=== PATIENT | female | born 1955 | race Caucasian/White ===

== ENCOUNTER 2017-01-01 22:34 | Inpatient (IN) | payer BC, OTHER ==
[~2017-01-01] VITALS: Ht 167.6 cm; Wt 76.4 kg
[~2017-01-01 22:34] MED LIST: CHLO500T13 PO; CLOR3.755 PO; FIORTAB4 PO; MAXA10TA4 PO; META48.53 PO; MINO50CA PO; NIAC400C2 PO; NORT25CA PO; OXYC-360 PO; TUMS500C PO; ZOFR8TAB4 SL
[2017-01-01 22:45] VITALS: BP 182/112; PULSE 148; RESP 18; TEMP 99; O2SAT 99
[2017-01-01] MEDS ORDERED: SODIUM CHLOR 0.9% 1000 ML INJ 1,000 ML IV SCH (23:19)
[2017-01-01 23:21] VITALS: RESP 18; TEMP 99; O2SAT 99
[2017-01-01] MEDS ORDERED: BUTA1CAP PO (23:21)
[2017-01-01 23:24] VITALS: RESP 18; TEMP 99; O2SAT 99
[2017-01-01] MEDS ORDERED: SODIUM CHLORIDE 0.9% FLUSH 10 ML FLUSH IV FLUSH PRN (23:30)
[2017-01-01] MEDS ORDERED: ONDANSETRON HCL 4 MG/2 ML VIAL IVP ONE (23:30)
--- NOTE | 2017-01-01 23:31 | PD ---
HPI Chief Complaint: Abdominal Pain Time Seen by Provider: 23:11 Travel History International Travel<30 days: No Contact w/Intl Traveler<30days: No Traveled to known affect area: No History of Present Illness HPI The patient is a 61-year-old female that complains of generalized abdominal pain with low-grade fever and nausea without vomiting for 4 days. She has slight diarrhea today. She denies any blood in the stool. She denies any melanotic stools. She has already had an appendectomy and cholecystectomy. She has also had a hysterectomy. PFSH Past Medical History Blood Disorders: No Anxiety: Yes Heart Rhythm Problems: No Cancer: Yes (SQUAMEOUS DARINEL SKIN CANCER 2011) Cardiovascular Problems: No High Cholesterol: Yes Diabetes: No Diverticulitis: Yes Endocrine: No Genitourinary: No Headaches: Yes (MIGRAINES) Hepatitis: No Hiatal Hernia: No Immune Disorder: No Musculoskeletal: No Neurologic: No Psychiatric: Yes Reproductive: No Respiratory: No Migraines: Yes Thyroid Disease: No Menopausal: Yes Past Surgical History Abdominal Surgery: Yes (CHOLECYSTECTOMY, APPENDECTOMY) Cholecystectomy: Yes Social History Alcohol Use: No Tobacco Use: No Substance Use: No Allergies-Medications (Allergen,Severity, Reaction): Coded Allergies: Ciprofloxacin (Unverified Allergy, Severe, RASH, 01/01/17) Penicillin (Verified Allergy, Severe, 01/01/17) Sulfa (Verified Allergy, Severe, HIVES, 01/01/17) Erythromycin (Unverified Allergy, Unknown, UNKNOWN, 01/01/17) Reported Meds & Prescriptions Reported Meds & Active Scripts Active Reported Fioricet (Smnttmfmoy-Cpwackttpdpik-Ygmhzgri) 50-300-40 Mg Cap 1-2 Cap PO Q6H PRN Review of Systems Except as stated in HPI: all other systems reviewed are Neg Physical Exam Narrative GENERAL: The patient is alert, slightly obese, oriented 3 in slight apparent distress with her abdominal discomfort. The heart rate is 148 and blood pressure 182/112 but the rest the vital signs are normal. SKIN: Focused skin assessment warm/dry. No skin rashes noted. HEAD: Atraumatic. Normocephalic. EYES: Pupils equal and round. No scleral icterus. No injection or drainage. ENT: No nasal bleeding or discharge. Mucous membranes pink and moist. NECK: Trachea midline. No JVD. There is no meningismus present. CARDIOVASCULAR: Sinus tachycardia rhythm. No murmur appreciated. RESPIRATORY: No accessory muscle use. Clear to auscultation. Breath sounds equal bilaterally. GASTROINTESTINAL: Abdomen soft, with tenderness in the right lower quadrant to direct palpation, nondistended. Hepatic and splenic margins not palpable. No guarding or rebound is present. MUSCULOSKELETAL: No obvious deformities. No clubbing. No cyanosis. No edema. NEUROLOGICAL: Awake and alert. No obvious cranial nerve deficits. Motor grossly within normal limits. Normal speech. PSYCHIATRIC: Appropriate mood and affect; insight and judgment normal. Data Data Last Documented VS Vital Signs Date Time Temp Pulse Resp B/P Pulse Ox O2 Delivery O2 Flow Rate FiO2 01/02/17 00:50 109 18 189/100 99 Room Air 01/01/17 23:24 99.0 Orders Complete Blood Count With Diff (01/01/17 23:19) Comprehensive Metabolic Panel (01/01/17 23:19) Lipase (01/01/17 23:19) Urinalysis - C+S If Indicated (01/01/17 23:19) Ct Abd/Pel W Iv Contrast(Rout) (01/01/17 23:19) Iv Access Insert/Monitor (01/01/17 23:19) Ecg Monitoring (01/01/17 23:19) Oximetry (01/01/17 23:19) Ondansetron Inj (Zofran Inj) (01/01/17 23:30) Sodium Chlor 0.9% 1000 Ml Inj (Ns 1000 M (01/01/17 23:19) Sodium Chloride 0.9% Flush (Ns Flush) (01/01/17 23:30) Ketorolac Inj (Toradol Inj) (01/02/17 00:30) Iohexol 350 Inj (Omnipaque 350 Inj) (01/02/17 00:49) Labs Laboratory Tests Test 01/01/17 23:40 White Blood Count 13.4 TH/MM3 Red Blood Count 4.79 MIL/MM3 Hemoglobin 13.9 GM/DL Hematocrit 42.7 % Mean Corpuscular Volume 89.1 FL Mean Corpuscular Hemoglobin 29.1 PG Mean Corpuscular Hemoglobin 32.6 % Concent Red Cell Distribution Width 12.0 % Platelet Count 303 TH/MM3 Mean Platelet Volume 7.6 FL Neutrophils (%) (Auto) 80.5 % Lymphocytes (%) (Auto) 11.5 % Monocytes (%) (Auto) 7.3 % Eosinophils (%) (Auto) 0.4 % Basophils (%) (Auto) 0.3 % Neutrophils # (Auto) 10.8 TH/MM3 Lymphocytes # (Auto) 1.5 TH/MM3 Monocytes # (Auto) 1.0 TH/MM3 Eosinophils # (Auto) 0.1 TH/MM3 Basophils # (Auto) 0.0 TH/MM3 CBC Comment DIFF FINAL Differential Comment Urine Color STRAW Urine Turbidity CLEAR Urine pH 5.5 Urine Specific [place] 1.005 Urine Protein NEG mg/dL Urine Glucose (UA) NEG mg/dL Urine Ketones NEG mg/dL Urine Occult Blood TRACE Urine Nitrite NEG Urine Bilirubin NEG Urine Leukocyte Esterase NEG Urine RBC 0-2 /hpf Urine WBC 0-2 /hpf Urine Squamous Epithelial 0-5 /hpf Cells Urine Bacteria NONE /hpf Microscopic Urinalysis Comment CULT NOT INDICATED Sodium Level 140 MEQ/L Potassium Level 3.7 MEQ/L Chloride Level 105 MEQ/L Carbon Dioxide Level 24.5 MEQ/L Anion Gap 11 MEQ/L Blood Urea Nitrogen 10 MG/DL Creatinine 0.94 MG/DL Estimat Glomerular Filtration 61 ML/MIN Rate Random Glucose 141 MG/DL Calcium Level 9.3 MG/DL Total Bilirubin 0.4 MG/DL Aspartate Amino Transf 11 U/L (AST/SGOT) Alanine Aminotransferase 25 U/L (ALT/SGPT) Alkaline Phosphatase 76 U/L Total Protein 8.1 GM/DL Albumin 3.9 GM/DL Lipase 62 U/L MDM Medical Decision Making Medical Screen Exam Complete: Yes Emergency Medical Condition: Yes Medical Record Reviewed: Yes Interpretation(s) The urine shows trace blood but is otherwise normal and culture is not indicated. The CT abdomen/pelvis with IV contrast shows moderate to severe acute uncomplicated diverticulitis of the sigmoid colon. There is considerable wall thickening, presumably inflammatory. A small hiatal hernias incidentally noted. The complete metabolic profile shows a glucose of 141, GFR 61 but is otherwise normal. The lipase is normal. The CBC shows a white count of 13,400 with 81% neutrophils. Differential Diagnosis Gastroenteritis, colitis, diverticulitis on right side, pyelonephritis, cystitis , electrolyte disorder, dehydration Narrative Course The patient has acute diverticulitis without complication. The diverticulitis is moderate to severe as described by the radiologist and the patient has abdominal pain. She is a poor candidate for going home because of the intractable pain and the severity of the diverticulitis. She also has an elevated blood pressure which is not resolved by repeat blood pressures in the emergency department. Physician Communication Physician Communication I discussed the patient with Os[facility] who is covering for [facility], the patient will be admitted to Dr. Israel Wheeler. Diagnosis Primary Impression: Diverticulitis Additional Impression: Hypertension, poor control Admitting Information Admitting Physician Requests: Admit Wellington Haywood MD Jan 01, 2017 23:30
[2017-01-01 23:51] VITALS: BP 163/100; PULSE 114; RESP 18; O2SAT 97
[2017-01-01 23:55] LABS: BLOOD, URINE TRACE (NEG); GLUCOSE,URINE NEG (NEG); KETONE, URINE NEG (NEG); NITRITE,URINE NEG (NEG); PH, URINE 5.5 (5.0-8.5)
[2017-01-01 23:57] LABS: AUTOMATED NEUTROPHIL # 10.8 TH/MM3 (1.8-7.7); BASOPHIL % 0.3 % (0.0-2.0); EOSINOPHIL # 0.1 TH/MM3 (0-0.4); EOSINOPHIL % 0.4 % (0.0-4.0); HEMATOCRIT 42.7 % (35.0-46.0); HEMO FLAGS DIFF FINAL; LYMPH % 11.5 % (9.0-44.0); LYMPHOCYTE # 1.5 TH/MM3 (1.0-4.8); MEAN CELL VOLUME 89.1 FL (80.0-100.0); MEAN CORPUSCULAR HEMOGLOBIN 29.1 PG (27.0-34.0); MEAN CORPUSCULAR HGB CONC 32.6 % (32.0-36.0); MONO % 7.3 % (0.0-8.0); NEUT % 80.5 % (16.0-70.0); PLATELET COUNT 303 TH/MM3 (150-450); RED BLOOD COUNT 4.79 MIL/MM3 (4.00-5.30); WHITE BLOOD COUNT 13.4 TH/MM3 (4.0-11.0)
[2017-01-01 23:58] LABS: URINE COLOR STRAW (YELLW/STRAW)
[2017-01-01 23:59] LABS: COMMENT (UR) CULT NOT INDICATED; CULTURE IF INDICATED CULT NOT INDICATED; RBC, URINE 0-2 /hpf (0-3); SQUAMOUS EPITHELIAL CELL URINE 0-5 /hpf (0-5); WBC, URINE 0-2 /hpf (0-5)
[2017-01-02] VITALS (8 sets, daily range): BP systolic 137–189; BP diastolic 82–100; PULSE 95–126; RESP 15–18; TEMP 96.1–98.3; O2SAT 95–99
[2017-01-02 00:04] LABS: CHLORIDE 105 MEQ/L (98-107); POTASSIUM 3.7 MEQ/L (3.5-5.1); SODIUM (NA) 140 MEQ/L (136-145)
[2017-01-02 00:07] LABS: ANION GAP 11 MEQ/L (5-15); BICARBONATE 24.5 MEQ/L (21.0-32.0)
[2017-01-02 00:08] LABS: BLOOD UREA NITROGEN 10 MG/DL (7-18)
[2017-01-02 00:10] LABS: ALT (GPT) 25 U/L (10-53); AST (GOT) 11 U/L (15-37); GLOMERULAR FILTRATION RATE 61 ML/MIN (>89)
[2017-01-02 00:12] LABS: TOTAL BILIRUBIN ADULT 0.4 MG/DL (0.2-1.0)
[2017-01-02 00:13] LABS: ALKALINE PHOSPHATASE 76 U/L (45-117)
[2017-01-02] MEDS ORDERED: KETOROLAC TROMETHAMINE 60 MG/2 ML (IM) VIAL IVP ONE (00:30)
[2017-01-02] MEDS ORDERED: IOHEXOL 350 MG/ML 10 ML VIAL (for RAD DIAG) IV ONE (00:49)
--- NOTE | 2017-01-02 01:01 | RADHPO ---
EXAM DATE/TIME: 01/02/2017 00:29 [place] COMPARISON: No previous studies available for comparison. INDICATIONS : Diffuse abdominal pain with nausea for four days. IV CONTRAST: 96 cc Omnipaque 350 (iohexol) IV ORAL CONTRAST: No oral contrast ingested. RADIATION DOSE: 16.55 CTDIvol (mGy) MEDICAL HISTORY : Carcinoma, squamous cell. Diverticulitis. SURGICAL HISTORY : Appendectomy. Cholecystectomy.Hysterectomy. ENCOUNTER: Initial ACUITY: 4 - 6 days PAIN SCALE: 5/10 LOCATION: abdomen. TECHNIQUE: Volumetric scanning of the abdomen and pelvis was performed. Using automated exposure control and ad justment of the mA and/or kV according to patient size, radiation dose was kept as low as reasonably achievable to obtain optimal diagnostic quality images. FINDINGS: LOWER LUNGS: The visualized lower lungs are clear. LIVER: Homogeneous density without lesion. There is no dilation of the biliary tree. Previous cholecystecto my. SPLEEN: Normal size without lesion. PANCREAS: Within normal limits. KIDNEYS: Normal in size and shape. There is no mass, stone or hydronephrosis. ADRENAL GLANDS: Within normal limits. VASCULAR: There is no aortic aneurysm. BOWEL/MESENTERY: In the mid pelvic cavity is a focal area of wall thickening and moderate to severe inflammatory baxter es of the sigmoid colon, most likely on the basis of diverticulitis. No abscess, perforation or obstr uction. CT appearance of the small bowel within normal limits. Other than a small hiatal hernia, the stomach also appears normal. ABDOMINAL WALL: Within normal limits. RETROPERITONEUM: There is no lymphadenopathy. BLADDER: No wall thickening or mass. REPRODUCTIVE: Previous hysterectomy. I also don't clearly see the ovaries. INGUINAL: There is no lymphadenopathy or hernia. MUSCULOSKELETAL: No acute bony abnormality demonstrated. CONCLUSION: 1. Moderate to severe acute, uncomplicated diverticulitis of the sigmoid colon. There is considerable wall thickening, presumably inflammatory but colonoscopy is recommended after resolution of the acut e process and if not done recently. 2. No other acute abnormalities are demonstrated. Small hiatal hernia noted. Roe Walsh MD on January 02, 2017 at 0:55 Board Certified Radiologist. This report was verified electronically.
[2017-01-02] MEDS ORDERED: CLINDAMYCIN INJ 600 MG in SODIUM CHLORIDE 0.9% INJ 100 ML IV ONE (01:30)
[2017-01-02] MEDS ORDERED: metroNIDAZOLE 500 MG INJ 100 ML IV ONE (01:30)
[2017-01-02] MEDS ORDERED: SODIUM CHLORIDE 0.9% FLUSH 10 ML FLUSH IV FLUSH PRN (02:00)
[2017-01-02] MEDS ORDERED: NALOXONE HCL 0.4 MG/ML AMP IV PRN (02:00)
[2017-01-02] MEDS ORDERED: ONDANSETRON HCL 4 MG/2 ML VIAL IVP PRN (02:00)
[2017-01-02] MEDS: hydrALAZINE HCL 20 MG/ML VIAL IV PUSH PRN (02:19)
[2017-01-02] MEDS: MORPHINE SULFATE 4 MG/ML INJ IV PRN ×5 (03:32→22:01)
[2017-01-02] MEDS ORDERED: metroNIDAZOLE 500 MG INJ 100 ML IV SCH (08:00)
[2017-01-02] MEDS: PANTOPRAZOLE SOD 40 MG DELAYED RELEASE TAB PO SCH (08:22)
[2017-01-02] MEDS ORDERED: CLINDAMYCIN INJ 300 MG in SODIUM CHLORIDE 0.9% INJ 100 ML IV SCH (09:00)
--- NOTE | 2017-01-02 11:37 | MH ---
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 He had a slight diarrhea. She denies any blood in the stool. She denies any black stool. She denies any fever. She denies any chest pain, shortness of breath or any frequent or painful urination. Other than that, nothing significant. The abdominal pain was 2-3/10, diffuse with no radiation. No aggravating factors, relieved with pain medications. PAST MEDICAL HISTORY: As dictated above. PAST SURGICAL HISTORY: As dictated above. SOCIAL HISTORY: Denies smoking and drinking or taking any drugs. Lives at home. She is retired from the [employer]. ALLERGIES: 1. CIPROFLOXACIN. 2. PENICILLIN. 3. SULFA. 4. ERYTHROMYCIN. MEDICATIONS: Fioricet 50/300/40 one to two capsules p.o. q. 6 hours PRN headache. REVIEW OF SYSTEMS: Positive for mild abdominal pain. All other review of systems negative. PHYSICAL EXAMINATION: GENERAL: On physical exam, this is a 61-year-old female lying on the bed not in acute distress. VITAL SIGNS: Temperature 97.0, heart rate 113, respirations 18, blood pressure 154/82. 02 saturation 98% on room air. HEAD, EYES, EARS, NOSE, THROAT: Normocephalic and atraumatic. Extraocular muscles intact. Pupils equal, round and reactive to light and accommodation. Oral mucosa moist. NECK: The neck is supple. No visible thyromegaly or neck mass. Trachea is central. CARDIOVASCULAR: Regular rate and rhythm. RESPIRATORY: Clear to auscultation bilaterally. ABDOMEN: Abdomen soft and nontender. Bowel sounds audible. EXTREMITIES: No cyanosis or clubbing. Full range of motion of all extremities. NEUROLOGIC: Awake, alert and oriented times four. No focal deficits. SKIN: Warm and dry. PSYCHIATRIC: The patient is cooperative. Mood and affect are normal. LABS: CBC is totally unremarkable except for white blood cell count of 13.4 (high). Neutrophil percentage is high at 2.5. Basic metabolic profile totally unremarkable except for GFR 61 low, glucose random 141 high. Urine examination showed trace of occult blood. IMAGING STUDIES: CT abdomen and pelvis was done and shows moderate to severe acute uncomplicated diverticulitis of the sigmoid colon. There is considerable wall thickening and presumably inflammatory but colonoscopy is recommended after resolution of the acute process, and if not done recently. No acute abnormality demonstrated. Small hiatal hernia noted. No other acute abnormality demonstrated. ASSESSMENT AND PLAN: 1. This is a 61-year female who came to the emergency room and diagnosed with abdominal pain secondary to acute diverticulitis. The patient is on clindamycin 300 milligrams IV q. 6 hours, Flagyl 500 milligrams IV three times a day, the patient is on morphine 2 milligrams IV q. 4 hours PRN pain. 2. History of migraine headaches. Continue home medications. 3. History of anxiety. 4. 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 5. History of hyperlipidemia. The patient is not taking any cholesterol medicine. 6. DVT prophylaxis with SCDs. 7. GI prophylaxis with Protonix 40 milligrams p.o. daily. We are going to manage the patient on a daily basis and make recommendations on a daily basis. Israel Boss MD EA/LAXMI /7:13 AM /11:24 AM
[2017-01-03 00:20] VITALS: BP 155/95; PULSE 97; RESP 16; TEMP 98.7; O2SAT 98
[2017-01-03] MEDS: ACETAMINOPHEN 325 MG TAB PO PRN ×4 (00:52→22:25)
[2017-01-03] MEDS: MORPHINE SULFATE 4 MG/ML INJ IV PRN (06:18)
--- NOTE | 2017-01-03 07:25 | HHI.PR ---
Subjective History of Present Illness Patient c/o abdominal pain no fever/ chills Review of Systems GI/Abdomen GI/Abdominal Exam: Abdominal Pain Vitals/Results Intake & Output 01/02/17 01/02/17 01/03/17 15:00 23:00 07:00 Intake Total 0 ml Balance 0 ml Intake IV Total 0 ml # Voids 3 2 Vital Signs Vital Signs Date Time Temp Pulse Resp B/P Pulse Ox O2 Delivery O2 Flow Rate FiO2 01/03/17 04:21 01/03/17 00:20 98.7 97 16 155/95 98 01/02/17 20:45 98.3 95 18 157/98 95 01/02/17 17:57 16 01/02/17 17:49 97.4 99 15 158/97 99 01/02/17 13:20 96.1 98 16 152/91 99 01/02/17 08:42 96.1 104 15 137/85 98 CBC/BMP: 01/01/17 2340 01/01/17 2340 Physical Exam General General Appearance: Well Developed, Well Nourished, No Acute Distress, Comfortable Eyes Eye Exam: Pupils Equal, Pupils Reactive, Sclera White, Extraocular Movement Intact Throat Throat Exam: Oral Mucosa [place] & Moist, Oral Pharynx Normal Neck Neck Exam: Neck Supple, Trachea Midline Pulmonary Resp Exam: Clear Bilaterally, Breath Sounds Equal Cardiology CV Exam: Regular, Normal Sinus Rhythm Gastrointestinal/Abdomen GI Exam: Soft, Bowel Sounds Present GI Remarks diffuse abdominal tenderness. Musculoskeletal MS Exam: Normal Tone Integumentary Skin Exam: Clear, Warm, Dry, Intact Neurologic Neuro Exam: Alert, Awake, Oriented, Speech Clear, Moving All Extremities, No Focal Deficits Psychiatric Psych Exam: Appropriate Responses VTE Prophylaxis VTE Prophylaxis Device: SCDs PUD Prophylasis PUD Prophylaxis: Protonix Assessment/Plan Assessment/Plan ASSESSMENT AND PLAN: This is a 61-year female who came to the emergency room and diagnosed with 1. Abdominal pain secondary to acute diverticulitis. The patient was on clindamycin 300 milligrams IV q. 6 hours, Flagyl 500 milligrams IV three times a day, have swelling of face and ringing in ear so antibiotic discontinued...ID Consulted... the patient is on morphine 2 milligrams IV q. 4 hours PRN pain. 2. History of migraine headaches. Continue home medications. 3. History of anxiety. 4. 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 5. History of hyperlipidemia. The patient is not taking any cholesterol medicine. 6. DVT prophylaxis with SCDs. 7. GI prophylaxis with Protonix 40 milligrams p.o. daily. We are going to manage the patient on a daily basis and make recommendations on a daily basis. Discussed Condition with: Patient Israel Wheeler MD Jan 03, 2017 07:25
[2017-01-03 07:33] LABS: CHLORIDE 106 MEQ/L (98-107); POTASSIUM 3.9 MEQ/L (3.5-5.1); SODIUM (NA) 140 MEQ/L (136-145)
[2017-01-03 07:40] LABS: ANION GAP 10 MEQ/L (5-15); BICARBONATE 23.7 MEQ/L (21.0-32.0); BLOOD UREA NITROGEN 8 MG/DL (7-18); HEMATOCRIT 39.5 % (35.0-46.0); MEAN CELL VOLUME 90.2 FL (80.0-100.0); MEAN CORPUSCULAR HEMOGLOBIN 29.7 PG (27.0-34.0); PLATELET COUNT 254 TH/MM3 (150-450); RED BLOOD COUNT 4.38 MIL/MM3 (4.00-5.30); RED CELL DISTRIBUTION WIDTH 12.7 % (11.6-17.2); WHITE BLOOD COUNT 15.3 TH/MM3 (4.0-11.0)
[2017-01-03 07:42] LABS: ALT (GPT) 20 U/L (10-53); AST (GOT) 13 U/L (15-37); GLOMERULAR FILTRATION RATE 85 ML/MIN (>89)
[2017-01-03 07:43] LABS: TOTAL BILIRUBIN ADULT 0.5 MG/DL (0.2-1.0)
[2017-01-03 07:45] LABS: ALKALINE PHOSPHATASE 62 U/L (45-117)
[2017-01-03 08:11] LABS: HEMO FLAGS AUTO DIFF
[2017-01-03 08:15] LABS: BANDS 1 % (0-6); BASOPHILS 1 % (0-2); EOSINOPHILS 1 % (0-4); NEUTROPHIL # MANUAL DIFF 10.9 TH/MM3 (1.8-7.7); POLYS (SEG NEUTROPHILS) 70 % (16-70); WBC DIFF SAMPLE 100
[2017-01-03 08:16] LABS: PLATELET ESTIMATE SMEAR NORMAL (NORMAL); PLATELET MORPHOLOGY NORMAL (NORMAL); ROULEAUX PRESENT (NORMAL); SCAN/DIFF FINAL DIFF MANUAL
[2017-01-03] MEDS: metroNIDAZOLE 500 MG TAB PO SCH ×2 (08:42→14:00)
[2017-01-03] MEDS: PANTOPRAZOLE SOD 40 MG DELAYED RELEASE TAB PO SCH (08:42)
[2017-01-03] MEDS: CLINDAMYCIN 150 MG CAP PO SCH ×2 (08:42→12:15)
[2017-01-03 09:17] VITALS: BP 167/102; PULSE 83; RESP 15; TEMP 97.9; O2SAT 98
[2017-01-03] MEDS: ACETAMINOPHEN/HYDROcodone 325 MG/7.5 MG TAB PO PRN ×3 (09:24→20:35)
--- NOTE | 2017-01-03 10:35 | PD.CONS ---
HPI History of Present Illness This is a 61 year old female who presented to the emergency room with complaints of abdominal pain and nausea and fever for a few days prior to admission the patient admits to having had nuts the past several days and currently is feeling much better the pain has greatly improved and the nausea also has improved and she is able to tolerate clear liquid diet on admission through the ER a CAT scan of the abdomen was done and this shows acute diverticulitis this is her first episode of diverticulitis the patient reports having had a colonoscopy about 10 years ago and in general has been in good health up until this episode PFSH Past Medical History Migraine Skin cancer Anxiety Past Surgical History Cholecystectomy Appendectomy Hysterectomy Coded Allergies: Ciprofloxacin (Unverified Allergy, Severe, RASH, 01/01/17) Penicillin (Verified Allergy, Severe, 01/01/17) Sulfa (Verified Allergy, Severe, HIVES, 01/01/17) Erythromycin (Unverified Allergy, Unknown, UNKNOWN, 01/01/17) Medications Current Medications Ondansetron HCl 4 mg 4 mg ONCE ONCE IVP Last administered on 01/01/17 23:56; Start 01/01/17 at 23:30; Stop 01/01/17 at 23:31; Status DC Sodium Chloride (NS 1000 ml Inj) 1,000 ml @ 1,000 mls/hr Q1H IV Last administered on 01/01/17 23:56; Start 01/01/17 at 23:19; Stop 01/02/17 at 00:18 ; Status DC Sodium Chloride (NS Flush) 2 ml UNSCH PRN IV FLUSH FLUSH AFTER USING IV ACCESS ; Start 01/01/17 at 23:30 Ketorolac Tromethamine (Toradol Inj) 30 mg ONCE ONCE IVP Last administered on 01/02/17 00:47; Start 01/02/17 at 00:30; Stop 01/02/17 at 00:31; Status DC Iohexol 96 ml 96 ml STK-MED ONCE IV Last administered on 01/02/17 00:49; Start 01/02/17 at 00:49; Stop 01/02/17 at 00:50; Status DC Clindamycin Phosphate 600 mg/ Sodium Chloride 104 ml @ 208 mls/hr ONCE ONCE IV Last administered on 01/02/17 02:22; Start 01/02/17 at 01:30; Stop at 01:59; Status DC Metronidazole (Flagyl 500 Mg Inj) 100 ml @ 100 mls/hr ONCE ONCE IV Last administered on 01/02/17 01:48; Start 01/02/17 at 01:30; Stop 01/02/17 at 02:34 ; Status DC Sodium Chloride (NS Flush) 2 ml UNSCH PRN IV FLUSH FLUSH AFTER USING IV ACCESS ; Start 01/02/17 at 02:00 Acetaminophen (Tylenol) 650 mg Q4H PRN PO TEMP > 100.4 Last administered on 05:12; Start 01/02/17 at 02:00 Ondansetron HCl (Zofran Inj) 4 mg Q6H PRN IVP NAUSEA OR VOMITING; Start at 02:00 Naloxone HCl 0.4 mg 0.4 mg UNSCH PRN IV SEE LABEL COMMENTS; Start 01/02/17 at 02:00 Metronidazole 100 ml @ 100 mls/hr Q8H IV Last administered on 01/02/17 08:21 ; Start 01/02/17 at 08:00; Stop 01/02/17 at 15:43; Status DC Clindamycin Phosphate/Sodium Chloride (Cleocin Inj/NS Inj) 102 ml @ 104 mls/hr Q6H IV Last administered on 01/02/17 11:22; Start 01/02/17 at 09:00; Stop at 15:43; Status DC Hydralazine HCl (Apresoline Inj) 20 mg Q4H PRN IV PUSH SBP>160, DBP>90 Last administered on 01/02/17 02:19; Start 01/02/17 at 02:00 Morphine Sulfate (Morphine Inj) 2 mg Q4H PRN IV PAIN 7-10 Last administered on 01/03/17 06:18; Start 01/02/17 at 03:30; Stop 01/03/17 at 07:55; Status DC Pantoprazole Sodium (Protonix) 40 mg DAILY PO Last administered on 01/03/17 08 :42; Start 01/02/17 at 09:00 Acetaminophen/ Hydrocodone Bitart ([place] 7.5-325 Mg) 1 tab Q6H PRN PO PAIN SCALE 4 TO 10 Last administered on 4/30/17at 09:24; Start 01/03/17 at 08:00 Metronidazole (Flagyl) 500 mg Q8HR PO Last administered on 01/03/17 08:42; Start 01/03/17 at 08:00 Clindamycin HCl (Cleocin) 150 mg Q6HR PO Last administered on 01/03/17 08:42; Start 01/03/17 at 08:00 Family History Noncontributory Social History Denies any alcohol or tobacco Review of Systems ROS Review of systems Patient denies any headache dizziness blurry vision, denies any chest pain shortness of breath cough fever chills, Denies any palpitations or fatigue denies any polyuria dysuria hematuria, denies any numbness tingling or weakness, denies any skin rash pruritus or jaundice, denies any easy bruising or bleeding tendency, denies any recent change in mood GI Exam Vitals I&O Vital Signs Date Time Temp Pulse Resp B/P Pulse Ox O2 Delivery O2 Flow Rate FiO2 01/03/17 09:17 97.9 83 15 167/102 98 01/03/17 04:21 01/03/17 00:20 98.7 97 16 155/95 98 01/02/17 20:45 98.3 95 18 157/98 95 01/02/17 17:57 16 01/02/17 17:49 97.4 99 15 158/97 99 01/02/17 13:20 96.1 98 16 152/91 99 I/O 01/02/17 01/02/17 01/02/17 01/03/17 01/03/17 01/03/17 07:00 15:00 23:00 07:00 15:00 23:00 Intake Total 125 ml 0 ml Balance 125 ml 0 ml Intake IV Total 125 ml 0 ml # Voids 3 3 2 Imaging Last Impressions Abdomen/Pelvis CT 01/01/17 2712 Signed Impressions: Service Date/Time: Monday, January 02, 2017 00:29 - CONCLUSION: 1. Moderate to severe acute, uncomplicated diverticulitis of the sigmoid colon. There is considerable wall thickening, presumably inflammatory but colonoscopy is recommended after resolution of the acute process and if not done recently. 2. No other acute abnormalities are demonstrated. Small hiatal hernia noted. Roe Walsh MD Laboratory Test 01/03/17 07:04 White Blood Count 15.3 TH/MM3 Red Blood Count 4.38 MIL/MM3 Hemoglobin 13.0 GM/DL Hematocrit 39.5 % Mean Corpuscular Volume 90.2 FL Mean Corpuscular Hemoglobin 29.7 PG Mean Corpuscular Hemoglobin 33.0 % Concent Red Cell Distribution Width 12.7 % Platelet Count 254 TH/MM3 Mean Platelet Volume 8.3 FL Neutrophils (%) (Auto) % Lymphocytes (%) (Auto) % Monocytes (%) (Auto) % Eosinophils (%) (Auto) % Basophils (%) (Auto) % Neutrophils # (Auto) TH/MM3 Lymphocytes # (Auto) TH/MM3 Monocytes # (Auto) TH/MM3 Eosinophils # (Auto) TH/MM3 Basophils # (Auto) TH/MM3 CBC Comment AUTO DIFF Differential Total Cells 100 Counted Neutrophils % (Manual) 70 % Band Neutrophils % 1 % Lymphocytes % 21 % Monocytes % 6 % Eosinophils % 1 % Basophils % 1 % Neutrophils # (Manual) 10.9 TH/MM3 Differential Comment FINAL DIFF MANUAL Platelet Estimate NORMAL Platelet Morphology Comment NORMAL Basophilic Stippling FAINT [place] PRESENT Sodium Level 140 MEQ/L Potassium Level 3.9 MEQ/L Chloride Level 106 MEQ/L Carbon Dioxide Level 23.7 MEQ/L Anion Gap 10 MEQ/L Blood Urea Nitrogen 8 MG/DL Creatinine 0.70 MG/DL Estimat Glomerular Filtration 85 ML/MIN Rate Random Glucose 120 MG/DL Calcium Level 8.7 MG/DL Total Bilirubin 0.5 MG/DL Aspartate Amino Transf 13 U/L (AST/SGOT) Alanine Aminotransferase 20 U/L (ALT/SGPT) Alkaline Phosphatase 62 U/L Total Protein 7.4 GM/DL Albumin 3.4 GM/DL Physical Examination HEENT: Pupils round and reactive to light; normocephalic; atraumatic; no jaundice. Throat is clear. NECK: Neck is supple, no JVD, no lymphadenopathy. CHEST: Chest is clear to auscultation and percussion. CARDIAC: Regular rate and rhythm with no murmur gallop or rubs. ABDOMEN: Soft, nondistended, mild lower abdominal tenderness with no rebound or guarding; no hepatosplenomegaly; bowel sounds are present in all four quadrants. EXTREMITIES: No clubbing, cyanosis, or edema. SKIN: Normal; no rash; no jaundice. FRYLINE ATTENDANT: No focal deficits; alert and oriented times three. Assessment and Plan Plan Acute diverticulitis Agree with current supportive care Agree with current antibiotics Recommend finishing 10 days worth of antibiotics Patient follow up with GI post discharge Colonoscopy in 4-6 weeks We will advance her diet to a low residue diet If all is stable tomorrow patient may be discharged from a GI standpoint Jaya Butler MD Jan 03, 2017 10:35
[2017-01-03] MEDS: hydrALAZINE HCL 20 MG/ML VIAL IV PUSH PRN (12:35)
[2017-01-03 14:21] VITALS: BP 173/87; PULSE 106; RESP 16; TEMP 96.7; O2SAT 100
[2017-01-03] MEDS: DIAZEPAM 2 MG TAB PO PRN ×2 (15:57→22:25)
[2017-01-03 16:31] VITALS: BP 181/91
[2017-01-03] MEDS ORDERED: DIAZEPAM 2 MG TAB PO SCH (18:00)
[2017-01-03 18:21] VITALS: BP 160/90; PULSE 97; RESP 15; TEMP 98.6; O2SAT 100
[2017-01-04] VITALS (7 sets, daily range): BP systolic 120–180; BP diastolic 84–106; PULSE 90–107; RESP 18–20; TEMP 96.5–98.8; O2SAT 96–100
[2017-01-04] MEDS: ACETAMINOPHEN/HYDROcodone 325 MG/7.5 MG TAB PO PRN ×4 (02:34→21:08)
[2017-01-04] MEDS: ACETAMINOPHEN 325 MG TAB PO PRN ×2 (05:22→17:55)
[2017-01-04] MEDS: cloNIDine HCL 0.1 MG TAB PO PRN ×2 (05:22→21:14)
[2017-01-04 06:45] LABS: HEMATOCRIT 39.5 % (35.0-46.0); MEAN CELL VOLUME 89.3 FL (80.0-100.0); MEAN CORPUSCULAR HGB CONC 33.5 % (32.0-36.0); PLATELET COUNT 310 TH/MM3 (150-450); RED BLOOD COUNT 4.42 MIL/MM3 (4.00-5.30); RED CELL DISTRIBUTION WIDTH 12.1 % (11.6-17.2); REVIEW FLAG FINAL; WHITE BLOOD COUNT 8.2 TH/MM3 (4.0-11.0)
[2017-01-04] MEDS: PANTOPRAZOLE SOD 40 MG DELAYED RELEASE TAB PO SCH (09:15)
[2017-01-04] MEDS: DIAZEPAM 2 MG TAB PO PRN ×2 (09:53→17:55)
--- NOTE | 2017-01-04 10:05 | HHI.PR ---
Subjective History of Present Illness Patient abdominal pain better..no fever/ chills Review of Systems GI/Abdomen GI/Abdominal Exam: Abdominal Pain Vitals/Results Intake & Output 01/03/17 01/03/17 01/04/17 15:00 23:00 07:00 Intake Total 1200 ml 0 ml Balance 1200 ml 0 ml Intake Oral 1200 ml IV Total 0 ml # Voids 4 7 Vital Signs Vital Signs Date Time Temp Pulse Resp B/P Pulse Ox O2 Delivery O2 Flow Rate FiO2 01/04/17 04:59 97.8 105 18 180/106 100 01/04/17 00:53 97.8 97 18 120/92 96 01/03/17 18:21 98.6 97 15 160/90 100 01/03/17 16:31 181/91 01/03/17 15:27 18 01/03/17 14:21 96.7 106 16 173/87 100 CBC/BMP: 01/04/17 0625 01/03/17 0704 Lab Results Laboratory Tests Test 01/04/17 06:25 White Blood Count 8.2 TH/MM3 Red Blood Count 4.42 MIL/MM3 Hemoglobin 13.2 GM/DL Hematocrit 39.5 % Mean Corpuscular Volume 89.3 FL Mean Corpuscular Hemoglobin 30.0 PG Mean Corpuscular Hemoglobin 33.5 % Concent Red Cell Distribution Width 12.1 % Platelet Count 310 TH/MM3 Mean Platelet Volume 7.6 FL Physical Exam General General Appearance: Well Developed, Well Nourished, No Acute Distress, Comfortable Eyes Eye Exam: Pupils Equal, Pupils Reactive, Sclera White, Extraocular Movement Intact Throat Throat Exam: Oral Mucosa [place] & Moist, Oral Pharynx Normal Neck Neck Exam: Neck Supple, Trachea Midline Pulmonary Resp Exam: Clear Bilaterally, Breath Sounds Equal Cardiology CV Exam: Regular, Normal Sinus Rhythm Gastrointestinal/Abdomen GI Exam: Soft, Bowel Sounds Present GI Remarks diffuse abdominal tenderness. Musculoskeletal MS Exam: Normal Tone Integumentary Skin Exam: Clear, Warm, Dry, Intact Neurologic Neuro Exam: Alert, Awake, Oriented, Speech Clear, Moving All Extremities, No Focal Deficits Psychiatric Psych Exam: Appropriate Responses VTE Prophylaxis VTE Prophylaxis Device: SCDs PUD Prophylasis PUD Prophylaxis: Protonix Assessment/Plan Assessment/Plan ASSESSMENT AND PLAN: This is a 61-year female who came to the emergency room and diagnosed with 1. Abdominal pain secondary to acute diverticulitis. The patient was on clindamycin 300 milligrams IV q. 6 hours, Flagyl 500 milligrams IV three times a day, have swelling of face and ringing in ear so antibiotic discontinued...ID Consulted... GI input noted..the patient is on morphine 2 milligrams IV q. 4 hours PRN pain. 2. History of migraine headaches. Continue home medications. 3. History of anxiety. 4. 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 5. History of hyperlipidemia. The patient is not taking any cholesterol medicine. 6. DVT prophylaxis with SCDs. 7. GI prophylaxis with Protonix 40 milligrams p.o. daily. We are going to manage the patient on a daily basis and make recommendations on a daily basis. Discussed Condition with: Patient Israel Wheeler MD January 04, 2017 10:05
[2017-01-04] MEDS ORDERED: ASP: Documented allergy to Penicillins or Cephalosporins PRN (11:15)
[2017-01-04] MEDS ORDERED: MISCELLANEOUS PHARMACY INFORMATION XX PRN (11:15)
--- NOTE | 2017-01-04 11:26 | PD.ID.CON ---
History of Present Illness Service ID Consult Requested By Dr Valerie Wheeler Reason for Consult diverticulitis; abx mngmnt ; h/o multiple abx allergies Primary Care Physician Olman García MD Diagnoses: History of Present Illness 61 yo female in good health presented Wednesday with 1 day acute onset abdominal pain and fever up to 100.7 at home Since admission rosie conklin has no documented fevers, her WBC went up to 15 K, now improved No nausea, vomiting + mild episode of diarrhea, n blood per rectum Her CT abd/pel showed Moderate to severe acute, uncomplicated diverticulitis of the sigmoid colon Pt was started on clinda, flagyl Clindamycin d/c'd 2/2 facial burning, swelling sensation Pt also reports other abx allergies: PCN - hives; was tested for allergy is still positive Cipro: diarrhea, body rash Levaquine: itching, numbness Bactrim - swellig Review of Systems Constitutional: COMPLAINS OF: Change in appetite Except as stated in HPI: all other systems reviewed are Neg Past Family Social History Allergies: Coded Allergies: Ciprofloxacin (Unverified Allergy, Severe, RASH, 01/01/17) Penicillin (Verified Allergy, Severe, 01/01/17) Sulfa (Verified Allergy, Severe, HIVES, 01/01/17) Erythromycin (Unverified Allergy, Unknown, UNKNOWN, 01/01/17) Past Medical History HTN Migraine Skin cancer Anxiety Past Surgical History Cholecystectomy Appendectomy Hysterectomy Active Ordered Medications Medications where reviewed in EMR Antibiotics Include: Flagyl Clinda - stopped 2/2 reaction Family History Non-Contributory. Social History No Tobacco. No ETOH. No Illicit Drugs. Physical Exam Vital Signs Vital Signs Date Time Temp Pulse Resp B/P Pulse Ox O2 Delivery O2 Flow Rate FiO2 01/04/17 10:16 18 01/04/17 08:00 98.0 92 18 158/101 99 01/04/17 04:59 97.8 105 18 180/106 100 01/04/17 00:53 97.8 97 18 120/92 96 01/03/17 18:21 98.6 97 15 160/90 100 01/03/17 16:31 181/91 01/03/17 14:21 96.7 106 16 173/87 100 Physical Exam CONSTITUTIONAL/GENERAL: This is an obese female patient, in no apparent distress. TUBES/LINES/DRAINS: SKIN: No jaundice, rashes, or lesions. Skin temperature appropriate. Not diaphoretic. HEAD: Atraumatic. Normocephalic. EYES: Pupils equal and round and reactive. Extraocular motions intact. No scleral icterus. No injection or drainage. Fundi not examined. ENT: Hearing grossly normal. Nose without bleeding or purulent drainage. Oral mucosae without visible erythema, exudates, masses, or lesions. NECK: Trachea midline. Supple, nontender. No palpable thyroid enlargement or nodularity. CARDIOVASCULAR: Regular rate and rhythm without murmurs, gallops, or rubs. No JVD. Peripheral pulses symmetric. RESPIRATORY/CHEST: Symmetric, unlabored respirations. Clear to auscultation. Breath sounds equal bilaterally. No wheezes, rales, or rhonchi. GASTROINTESTINAL: Abdomen soft, minimally tender in LLQ wo guarding, rebound, nondistended. No hepato-splenomegaly, or palpable masses. No guarding. Bowel sounds present. GENITOURINARY: Without palpable bladder distension. MUSCULOSKELETAL: Extremities without clubbing, cyanosis, or edema. No joint tenderness or effusion noted. No calf tenderness. No mottling or clubbing. LYMPHATICS: No palpable cervical or supraclavicular adenopathy. NEUROLOGICAL: Awake and alert. Motor and sensory grossly within normal limits. Follows commands. Normal speech. Moves all extremities. PSYCHIATRIC: No obvious anxiety/depression. no apparent hallucinations or other psychotic thought process. Laboratory Laboratory Tests Test 01/04/17 06:25 White Blood Count 8.2 Red Blood Count 4.42 Hemoglobin 13.2 Hematocrit 39.5 Mean Corpuscular Volume 89.3 Mean Corpuscular Hemoglobin 30.0 Mean Corpuscular Hemoglobin 33.5 Concent Red Cell Distribution Width 12.1 Platelet Count 310 Mean Platelet Volume 7.6 Result Diagram: 01/04/17 0625 01/03/17 0704 Imaging Last Impressions Abdomen/Pelvis CT 01/01/17 9859 Signed Impressions: Service Date/Time: Monday, January 02, 2017 00:29 - CONCLUSION: 1. Moderate to severe acute, uncomplicated diverticulitis of the sigmoid colon. There is considerable wall thickening, presumably inflammatory but colonoscopy is recommended after resolution of the acute process and if not done recently. 2. No other acute abnormalities are demonstrated. Small hiatal hernia noted. Roe Walsh MD Assessment and Plan Assessment and Plan Moderate to sever uncomplicated diverticulitis: clinically improving Leukcytosis - resolved Multiple abx allergies PCN - hives; was tested for allergy is still positive Cipro: diarrhea, body rash Levaquine: itching, numbness Bactrim - swellig - cefalosporin - no known use - per pt, office records No oral options for diverticulitis tx for this pt Once -a -day option: Ertapenem 1 gm IV daily Pt can be d/c'd to complete 10 days of abx Discussed Condition With pt RN from her primary care provider Anson Alva, pharmacist Ofelia Baer MD January 04, 2017 11:25
--- NOTE | 2017-01-04 11:27 | HHI.FF ---
Infusion Therapy Location of Infusion Therapy: [facility] IV Infusion Order Patient Information Patient Weight 76.5 kg Diagnosis: Diagnosis diverticulitis Coded Allergies: Ciprofloxacin (Unverified Allergy, Severe, RASH, 01/01/17) Penicillin (Verified Allergy, Severe, 01/01/17) Sulfa (Verified Allergy, Severe, HIVES, 01/01/17) Erythromycin (Unverified Allergy, Unknown, UNKNOWN, 01/01/17) Administer Medication Ertapenem 1 gram IV q 24 hours Start Treatment: January 04, 2017 Stop Treatment: January 13, 2017 Additional Information Venous access: PICC Line Additional Instructions [x] Peripheral flush and dressing changes per protocol [x] Implanted port and central service line bus cleaner: * Implanted port: 10 ml Normal Saline followed by 5 ml Heparin 100 units/ml Heparin flush after each use and monthly to maintain. [] May leave port accessed during therapy. [] May leave peripheral site accessed for duration of therapy. [x] If patient has SOB or respiratory distress, check oxygen saturation. If less than 90% or clinical signs of respiratory distress, administer oxygen at 2 L/min. via nasal cannula and notify physician. [x] Anaphylaxis/Reaction orders: * Stop infusion. * Keep IV line open with saline flush. * Notify physician. * Monitor vital signs every 15 minutes until symptoms resolve. * Check Oxygen saturation; Oxygen at 2 L/min. via nasal cannula if less than 90% or clinical signs of respiratory distress. * Administer diphenhydramine (Benadryl) 25 mg IV STAT, (unless patient has received as pre-med). May repeat once, if necessary. * Solu-Cortef 250 mg IVP over 30-60 seconds, use 100 mg vials for each dissolution. * Epinephrine (1mg/1 ml) 0.3 mg subcutaneously or IVP now with any signs of respiratory distress. * Check with physician for new additional pre-med orders if patient is re- challenged or re-treated. [x] May remove PICC line when treatment complete, after confirming with Physician. [x] If the patient is admitted to the hospital, the ED, or transferred via [facility] , complete transfer form including medication reconciliation order sheet. Laboratory Tests Weekly Labs: CBC w/diff, Creatinine Ofelia Baer MD January 04, 2017 11:27
[2017-01-04] MEDS ORDERED: ERTAPENEM INJ 1,000 MG in SODIUM CHLORIDE 0.9% INJ 100 ML IV SCH (13:00)
[2017-01-04] MEDS: diphenhydrAMINE HCL 25 MG CAP PO PRN ×2 (14:55→21:07)
--- NOTE | 2017-01-04 16:58 | HHI.PR ---
Addendum to Inpatient Note Additional Information Pt developped itching, burning immediately after invanz At this point given in view her multiple allergies and uncomplicated nature of the disease and significant clinical imptovement will switch to doxycycline 100 mg po bid and flagyl 500 mg po tid (she took both medx in the past with no problems) cont treatment thru January 13 Pt can be d/c 'd from [facility] if cont to improve will s/o - please let us know if further issues Ofelia Baer MD January 04, 2017 16:57
--- NOTE | 2017-01-04 17:25 | HHI.GIFU ---
GI Follow-up Note Consult Follow-up Subjective: Patient laying in bed comfortably, feeling better, very bloated.Pain better, switched to oral medications.States she has headaches , chronic for her, on Fioricet at home, also believes the new antibiotic may have triggered the headache Objective: PHYSICAL EXAMINATION: Vitals signs stable No fever Vital Signs Date Time Temp Pulse Resp B/P Pulse Ox O2 Delivery O2 Flow Rate FiO2 01/04/17 15:55 18 01/04/17 12:00 97.8 102 18 154/84 96 HEENT: Pupils round and reactive to light; normocephalic; atraumatic; no jaundice. Throat is clear. NECK: Neck is supple, no JVD, no lymphadenopathy. CHEST: Chest is clear to auscultation and percussion. CARDIAC: Regular rate and rhythm with no murmur gallop or rubs. ABDOMEN: Soft, nondistended, llq tenderness ; no hepatosplenomegaly; bowel sounds are present in all four quadrants. EXTREMITIES: No clubbing, cyanosis, or edema. SKIN: Normal; no rash; no jaundice, face flushed EP SPECIALIST: No focal deficits; alert and oriented times three. Available Data (labs, X- Rays, Procedues) : Laboratory Tests Test 01/03/17 01/04/17 07:04 06:25 White Blood Count 15.3 TH/MM3 8.2 TH/MM3 Red Blood Count 4.38 MIL/MM3 4.42 MIL/MM3 Hemoglobin 13.0 GM/DL 13.2 GM/DL Hematocrit 39.5 % 39.5 % Mean Corpuscular Volume 90.2 FL 89.3 FL Mean Corpuscular Hemoglobin 29.7 PG 30.0 PG Mean Corpuscular Hemoglobin 33.0 % 33.5 % Concent Red Cell Distribution Width 12.7 % 12.1 % Platelet Count 254 TH/MM3 310 TH/MM3 Mean Platelet Volume 8.3 FL 7.6 FL Neutrophils (%) (Auto) % Lymphocytes (%) (Auto) % Monocytes (%) (Auto) % Eosinophils (%) (Auto) % Basophils (%) (Auto) % Neutrophils # (Auto) TH/MM3 Lymphocytes # (Auto) TH/MM3 Monocytes # (Auto) TH/MM3 Eosinophils # (Auto) TH/MM3 Basophils # (Auto) TH/MM3 CBC Comment AUTO DIFF Differential Total Cells 100 Counted Neutrophils % (Manual) 70 % Band Neutrophils % 1 % Lymphocytes % 21 % Monocytes % 6 % Eosinophils % 1 % Basophils % 1 % Neutrophils # (Manual) 10.9 TH/MM3 Differential Comment FINAL DIFF MANUAL Platelet Estimate NORMAL Platelet Morphology Comment NORMAL Basophilic Stippling FAINT Rouleau PRESENT Sodium Level 140 MEQ/L Potassium Level 3.9 MEQ/L Chloride Level 106 MEQ/L Carbon Dioxide Level 23.7 MEQ/L Anion Gap 10 MEQ/L Blood Urea Nitrogen 8 MG/DL Creatinine 0.70 MG/DL Estimat Glomerular Filtration 85 ML/MIN Rate Random Glucose 120 MG/DL Calcium Level 8.7 MG/DL Total Bilirubin 0.5 MG/DL Aspartate Amino Transf 13 U/L (AST/SGOT) Alanine Aminotransferase 20 U/L (ALT/SGPT) Alkaline Phosphatase 62 U/L Total Protein 7.4 GM/DL Albumin 3.4 GM/DL ASSESSMENT/PLAN: acute diverticulitis-clinically better bloating chronic constipation-states at home taking probiotics and Colace daily-we will start Recommendations low residue diet start probiotics and Colace ok to use Fioricet if clinically indicated, decision as per primary antibiotics as per ID if dc fu office colonoscopy 6-8 weeks It was a pleasure seeing Linda Degroot. Thank you for this consult. Entered by: Cara Maria MD January 04, 2017 17:25
[2017-01-04] MEDS: DOXYCYCLINE HYCLATE 100 MG TAB PO SCH (21:07)
[2017-01-04] MEDS: LACTOBACILLUS ACIDOPHILUS TAB PO SCH (21:07)
[2017-01-04] MEDS: metroNIDAZOLE 500 MG TAB PO SCH (21:07)
[2017-01-05] VITALS: BP 145/99; PULSE 96; RESP 20; TEMP 97.5; O2SAT 98
[2017-01-05] MEDS: ACETAMINOPHEN 325 MG TAB PO PRN ×4 (00:20→20:10)
[2017-01-05] MEDS: ACETAMINOPHEN/HYDROcodone 325 MG/7.5 MG TAB PO PRN ×4 (03:46→23:38)
[2017-01-05] MEDS: DIAZEPAM 2 MG TAB PO PRN ×3 (03:50→17:24)
[2017-01-05 04:00] VITALS: BP 145/87; PULSE 89; RESP 18; TEMP 96.9; O2SAT 97
[2017-01-05] MEDS: metroNIDAZOLE 500 MG TAB PO SCH ×3 (05:59→22:14)
[2017-01-05 06:35] LABS: AUTOMATED NEUTROPHIL # 4.3 TH/MM3 (1.8-7.7); BASOPHIL # 0.1 TH/MM3 (0-0.2); BASOPHIL % 0.7 % (0.0-2.0); EOSINOPHIL # 0.2 TH/MM3 (0-0.4); EOSINOPHIL % 3.1 % (0.0-4.0); HEMATOCRIT 39.8 % (35.0-46.0); HEMO FLAGS DIFF FINAL; LYMPH % 28.5 % (9.0-44.0); LYMPHOCYTE # 2.1 TH/MM3 (1.0-4.8); MEAN CELL VOLUME 89.2 FL (80.0-100.0); MEAN CORPUSCULAR HEMOGLOBIN 30.3 PG (27.0-34.0); MONO % 8.8 % (0.0-8.0); NEUT % 58.9 % (16.0-70.0); PLATELET COUNT 331 TH/MM3 (150-450); RED BLOOD COUNT 4.47 MIL/MM3 (4.00-5.30); RED CELL DISTRIBUTION WIDTH 11.7 % (11.6-17.2); WHITE BLOOD COUNT 7.4 TH/MM3 (4.0-11.0)
[2017-01-05 06:45] LABS: CHLORIDE 106 MEQ/L (98-107); POTASSIUM 3.9 MEQ/L (3.5-5.1); SODIUM (NA) 143 MEQ/L (136-145)
[2017-01-05 06:55] LABS: ANION GAP 10 MEQ/L (5-15); BICARBONATE 26.9 MEQ/L (21.0-32.0); BLOOD UREA NITROGEN 14 MG/DL (7-18)
[2017-01-05 06:57] LABS: ALT (GPT) 32 U/L (10-53); AST (GOT) 23 U/L (15-37); GLOMERULAR FILTRATION RATE 75 ML/MIN (>89)
[2017-01-05 06:59] LABS: TOTAL BILIRUBIN ADULT 0.2 MG/DL (0.2-1.0)
[2017-01-05 07:00] LABS: ALKALINE PHOSPHATASE 60 U/L (45-117)
[2017-01-05] MEDS: diphenhydrAMINE HCL 25 MG CAP PO PRN ×3 (07:59→20:09)
[2017-01-05 08:00] VITALS: BP 154/92; PULSE 89; RESP 18; TEMP 97.7; O2SAT 99
--- NOTE | 2017-01-05 08:35 | HHI.PR ---
Subjective History of Present Illness Patient abdominal pain better..no fever/ chills ID input noted on Doxycycline and Flagyl per ID Recommendation. Review of Systems GI/Abdomen GI/Abdominal Exam: Abdominal Pain Vitals/Results Intake & Output 01/04/17 01/04/17 01/05/17 15:00 23:00 07:00 Intake Total 100 ml 240 ml 720 ml Balance 100 ml 240 ml 720 ml Intake Oral 240 ml 720 ml IV Total 100 ml # Voids 2 2 # Bowel Movements 0 0 Vital Signs Vital Signs Date Time Temp Pulse Resp B/P Pulse Ox O2 Delivery O2 Flow Rate FiO2 01/05/17 04:46 18 01/05/17 04:00 96.9 89 18 145/87 97 01/05/17 01:20 18 01/05/17 00:00 97.5 96 20 145/99 98 01/04/17 20:00 96.5 107 20 165/97 96 01/04/17 17:00 90 160/100 01/04/17 16:00 98.8 98 18 177/98 96 01/04/17 12:00 97.8 102 18 154/84 96 CBC/BMP: 01/05/17 0605 01/05/17 0605 Lab Results Laboratory Tests Test 01/05/17 06:05 White Blood Count 7.4 TH/MM3 Red Blood Count 4.47 MIL/MM3 Hemoglobin 13.5 GM/DL Hematocrit 39.8 % Mean Corpuscular Volume 89.2 FL Mean Corpuscular Hemoglobin 30.3 PG Mean Corpuscular Hemoglobin 34.0 % Concent Red Cell Distribution Width 11.7 % Platelet Count 331 TH/MM3 Mean Platelet Volume 7.3 FL Neutrophils (%) (Auto) 58.9 % Lymphocytes (%) (Auto) 28.5 % Monocytes (%) (Auto) 8.8 % Eosinophils (%) (Auto) 3.1 % Basophils (%) (Auto) 0.7 % Neutrophils # (Auto) 4.3 TH/MM3 Lymphocytes # (Auto) 2.1 TH/MM3 Monocytes # (Auto) 0.7 TH/MM3 Eosinophils # (Auto) 0.2 TH/MM3 Basophils # (Auto) 0.1 TH/MM3 CBC Comment DIFF FINAL Differential Comment Sodium Level 143 MEQ/L Potassium Level 3.9 MEQ/L Chloride Level 106 MEQ/L Carbon Dioxide Level 26.9 MEQ/L Anion Gap 10 MEQ/L Blood Urea Nitrogen 14 MG/DL Creatinine 0.78 MG/DL Estimat Glomerular Filtration 75 ML/MIN Rate Random Glucose 119 MG/DL Calcium Level 8.6 MG/DL Total Bilirubin 0.2 MG/DL Aspartate Amino Transf 23 U/L (AST/SGOT) Alanine Aminotransferase 32 U/L (ALT/SGPT) Alkaline Phosphatase 60 U/L Total Protein 7.8 GM/DL Albumin 3.6 GM/DL Physical Exam General General Appearance: Well Developed, Well Nourished, No Acute Distress, Comfortable Eyes Eye Exam: Pupils Equal, Pupils Reactive, Sclera White, Extraocular Movement Intact Throat Throat Exam: Oral Mucosa [place] & Moist, Oral Pharynx Normal Neck Neck Exam: Neck Supple, Trachea Midline Pulmonary Resp Exam: Clear Bilaterally, Breath Sounds Equal Cardiology CV Exam: Regular, Normal Sinus Rhythm Gastrointestinal/Abdomen GI Exam: Soft, Bowel Sounds Present GI Remarks diffuse abdominal tenderness...better. Musculoskeletal MS Exam: Normal Tone Integumentary Skin Exam: Clear, Warm, Dry, Intact Neurologic Neuro Exam: Alert, Awake, Oriented, Speech Clear, Moving All Extremities, No Focal Deficits Psychiatric Psych Exam: Appropriate Responses VTE Prophylaxis VTE Prophylaxis Device: SCDs PUD Prophylasis PUD Prophylaxis: Protonix Assessment/Plan Assessment/Plan ASSESSMENT AND PLAN: This is a 61-year female who came to the emergency room and diagnosed with 1. Abdominal pain secondary to acute diverticulitis. The patient was on Doxycycline 100 milligrams PO BID, Flagyl 500 milligrams PO three times a day, .ID input noted..Antibiotic per ID Recommendation... GI input noted..need colonoscopy 6-8 weeks....the patient is on morphine 2 milligrams IV q. 4 hours PRN pain...Diverticulitis Improving 2. History of migraine headaches. Continue home medications. 3. History of anxiety. 4. 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 5. History of hyperlipidemia. The patient is not taking any cholesterol medicine. 6. DVT prophylaxis with SCDs. 7. GI prophylaxis with Protonix 40 milligrams p.o. daily. We are going to manage the patient on a daily basis and make recommendations on a daily basis. Discussed Condition with: Patient Israel Wheeler MD January 05, 2017 08:35 Israel Wheeler MD January 05, 2017 08:35
[2017-01-05] MEDS: DOCUSATE SODIUM 100 MG CAP PO SCH (08:43)
[2017-01-05] MEDS: LACTOBACILLUS ACIDOPHILUS TAB PO SCH ×2 (08:43→20:10)
[2017-01-05] MEDS: PANTOPRAZOLE SOD 40 MG DELAYED RELEASE TAB PO SCH (08:44)
[2017-01-05] MEDS: DOXYCYCLINE HYCLATE 100 MG TAB PO SCH ×2 (08:44→21:15)
[2017-01-05 12:00] VITALS: BP 145/97; PULSE 89; RESP 18; TEMP 97.5; O2SAT 99
[2017-01-05 16:00] VITALS: BP 151/89; PULSE 95; RESP 18; TEMP 98.2; O2SAT 95
[2017-01-05 20:00] VITALS: BP 136/90; PULSE 93; RESP 18; TEMP 97.5; O2SAT 97
[2017-01-06] VITALS: BP 153/102; PULSE 84; RESP 18; TEMP 97.2; O2SAT 98
[2017-01-06] MEDS: ACETAMINOPHEN 325 MG TAB PO PRN (03:08)
[2017-01-06] MEDS: DIAZEPAM 2 MG TAB PO PRN ×2 (03:08→11:44)
[2017-01-06] MEDS: diphenhydrAMINE HCL 25 MG CAP PO PRN (05:22)
[2017-01-06] MEDS: ACETAMINOPHEN/HYDROcodone 325 MG/7.5 MG TAB PO PRN (06:28)
[2017-01-06] MEDS: metroNIDAZOLE 500 MG TAB PO SCH (06:28)
[2017-01-06 06:49] LABS: BASOPHIL # 0.1 TH/MM3 (0-0.2); EOSINOPHIL # 0.3 TH/MM3 (0-0.4); EOSINOPHIL % 3.7 % (0.0-4.0); HEMO FLAGS DIFF FINAL; LYMPH % 28.5 % (9.0-44.0); LYMPHOCYTE # 2.1 TH/MM3 (1.0-4.8); MEAN CELL VOLUME 88.7 FL (80.0-100.0); MEAN CORPUSCULAR HEMOGLOBIN 30.4 PG (27.0-34.0); MEAN CORPUSCULAR HGB CONC 34.3 % (32.0-36.0); MONO % 9.9 % (0.0-8.0); NEUT % 56.9 % (16.0-70.0); PLATELET COUNT 327 TH/MM3 (150-450); RED BLOOD COUNT 4.39 MIL/MM3 (4.00-5.30); RED CELL DISTRIBUTION WIDTH 11.8 % (11.6-17.2); WHITE BLOOD COUNT 7.2 TH/MM3 (4.0-11.0)
[2017-01-06 06:52] LABS: CHLORIDE 106 MEQ/L (98-107); POTASSIUM 3.9 MEQ/L (3.5-5.1); SODIUM (NA) 141 MEQ/L (136-145)
[2017-01-06 06:56] LABS: ANION GAP 7 MEQ/L (5-15); BICARBONATE 27.6 MEQ/L (21.0-32.0); BLOOD UREA NITROGEN 14 MG/DL (7-18)
[2017-01-06 06:59] LABS: ALT (GPT) 34 U/L (10-53); AST (GOT) 23 U/L (15-37); GLOMERULAR FILTRATION RATE 74 ML/MIN (>89)
[2017-01-06 07:01] LABS: TOTAL BILIRUBIN ADULT 0.4 MG/DL (0.2-1.0)
[2017-01-06 07:02] LABS: ALKALINE PHOSPHATASE 57 U/L (45-117)
--- NOTE | 2017-01-06 07:42 | HHI.GIFU ---
GI Follow-up Note Consult Follow-up Subjective: Patient laying in bed comfortably, feeling better.No nausea. vomiting, abdominal pain.Tolerating diet well.Constipation Objective: PHYSICAL EXAMINATION: Vitals signs stable No fever Vital Signs Date Time Temp Pulse Resp B/P Pulse Ox O2 Delivery O2 Flow Rate FiO2 01/06/17 04:08 16 01/06/17 00:38 18 01/06/17 00:00 97.2 84 18 153/102 98 HEENT: Pupils round and reactive to light; normocephalic; atraumatic; no jaundice. Throat is clear. NECK: Neck is supple, no JVD, no lymphadenopathy. CHEST: Chest is clear to auscultation and percussion. CARDIAC: Regular rate and rhythm with no murmur gallop or rubs. ABDOMEN: Soft, nondistended, nontender; no hepatosplenomegaly; bowel sounds are present in all four quadrants. EXTREMITIES: No clubbing, cyanosis, or edema. SKIN: Normal; no rash; no jaundice. CAMPAIGN CONSULTANT: No focal deficits; alert and oriented times three. Available Data (labs, X- Rays, Procedues) : Laboratory Tests Test 01/05/17 01/06/17 06:05 06:15 White Blood Count 7.4 TH/MM3 7.2 TH/MM3 Red Blood Count 4.47 MIL/MM3 4.39 MIL/MM3 Hemoglobin 13.5 GM/DL 13.3 GM/DL Hematocrit 39.8 % 39.0 % Mean Corpuscular Volume 89.2 FL 88.7 FL Mean Corpuscular Hemoglobin 30.3 PG 30.4 PG Mean Corpuscular Hemoglobin 34.0 % 34.3 % Concent Red Cell Distribution Width 11.7 % 11.8 % Platelet Count 331 TH/MM3 327 TH/MM3 Mean Platelet Volume 7.3 FL 7.2 FL Neutrophils (%) (Auto) 58.9 % 56.9 % Lymphocytes (%) (Auto) 28.5 % 28.5 % Monocytes (%) (Auto) 8.8 % 9.9 % Eosinophils (%) (Auto) 3.1 % 3.7 % Basophils (%) (Auto) 0.7 % 1.0 % Neutrophils # (Auto) 4.3 TH/MM3 4.0 TH/MM3 Lymphocytes # (Auto) 2.1 TH/MM3 2.1 TH/MM3 Monocytes # (Auto) 0.7 TH/MM3 0.7 TH/MM3 Eosinophils # (Auto) 0.2 TH/MM3 0.3 TH/MM3 Basophils # (Auto) 0.1 TH/MM3 0.1 TH/MM3 CBC Comment DIFF FINAL DIFF FINAL Differential Comment Sodium Level 143 MEQ/L 141 MEQ/L Potassium Level 3.9 MEQ/L 3.9 MEQ/L Chloride Level 106 MEQ/L 106 MEQ/L Carbon Dioxide Level 26.9 MEQ/L 27.6 MEQ/L Anion Gap 10 MEQ/L 7 MEQ/L Blood Urea Nitrogen 14 MG/DL 14 MG/DL Creatinine 0.78 MG/DL 0.79 MG/DL Estimat Glomerular Filtration 75 ML/MIN 74 ML/MIN Rate Random Glucose 119 MG/DL 119 MG/DL Calcium Level 8.6 MG/DL 8.4 MG/DL Total Bilirubin 0.2 MG/DL 0.4 MG/DL Aspartate Amino Transf 23 U/L 23 U/L (AST/SGOT) Alanine Aminotransferase 32 U/L 34 U/L (ALT/SGPT) Alkaline Phosphatase 60 U/L 57 U/L Total Protein 7.8 GM/DL 7.3 GM/DL Albumin 3.6 GM/DL 3.5 GM/DL ASSESSMENT/PLAN: acute diverticulitis clinically improved constipation Recommendations ok to dc home from gi point fu office 2 weeks colonoscopy 6-8 weeks antibiotics as per ID low fiber diet for 1 month, than high fiber diet gi will sign off It was a pleasure seeing Linda Degroot. Thank you for this consult. Entered by: Cara Maria MD January 06, 2017 07:42
[2017-01-06] MEDS ORDERED: MAGNESIUM HYDROXIDE SUSP 30 ML CUP PO ONE (07:45)
[2017-01-06] MEDS ORDERED: BISACODYL 10 MG SUPP RECTAL ONE (07:45)
--- NOTE | 2017-01-06 08:00 | HHI.PR ---
Subjective History of Present Illness Patient abdominal pain better..no fever/ chills ID input noted on Doxycycline and Flagyl per ID Recommendation...ok to dc per ID. and GI. Review of Systems GI/Abdomen GI/Abdominal Exam: Abdominal Pain Vitals/Results Intake & Output 01/05/17 01/05/17 01/06/17 15:00 23:00 07:00 Intake Total 890 ml 240 ml Balance 890 ml 240 ml Intake Oral 890 ml 240 ml # Voids 6 3 # Bowel Movements 0 1 Vital Signs Vital Signs Date Time Temp Pulse Resp B/P Pulse Ox O2 Delivery O2 Flow Rate FiO2 01/06/17 04:08 16 01/06/17 00:38 18 01/06/17 00:00 97.2 84 18 153/102 98 01/05/17 20:00 97.5 93 18 136/90 97 01/05/17 16:00 98.2 95 18 151/89 95 01/05/17 12:00 97.5 89 18 145/97 99 CBC/BMP: 01/06/17 0615 01/06/17 0615 Lab Results Laboratory Tests Test 01/06/17 06:15 White Blood Count 7.2 TH/MM3 Red Blood Count 4.39 MIL/MM3 Hemoglobin 13.3 GM/DL Hematocrit 39.0 % Mean Corpuscular Volume 88.7 FL Mean Corpuscular Hemoglobin 30.4 PG Mean Corpuscular Hemoglobin 34.3 % Concent Red Cell Distribution Width 11.8 % Platelet Count 327 TH/MM3 Mean Platelet Volume 7.2 FL Neutrophils (%) (Auto) 56.9 % Lymphocytes (%) (Auto) 28.5 % Monocytes (%) (Auto) 9.9 % Eosinophils (%) (Auto) 3.7 % Basophils (%) (Auto) 1.0 % Neutrophils # (Auto) 4.0 TH/MM3 Lymphocytes # (Auto) 2.1 TH/MM3 Monocytes # (Auto) 0.7 TH/MM3 Eosinophils # (Auto) 0.3 TH/MM3 Basophils # (Auto) 0.1 TH/MM3 CBC Comment DIFF FINAL Differential Comment Sodium Level 141 MEQ/L Potassium Level 3.9 MEQ/L Chloride Level 106 MEQ/L Carbon Dioxide Level 27.6 MEQ/L Anion Gap 7 MEQ/L Blood Urea Nitrogen 14 MG/DL Creatinine 0.79 MG/DL Estimat Glomerular Filtration 74 ML/MIN Rate Random Glucose 119 MG/DL Calcium Level 8.4 MG/DL Total Bilirubin 0.4 MG/DL Aspartate Amino Transf 23 U/L (AST/SGOT) Alanine Aminotransferase 34 U/L (ALT/SGPT) Alkaline Phosphatase 57 U/L Total Protein 7.3 GM/DL Albumin 3.5 GM/DL Physical Exam General General Appearance: Well Developed, Well Nourished, No Acute Distress, Comfortable Eyes Eye Exam: Pupils Equal, Pupils Reactive, Sclera White, Extraocular Movement Intact Throat Throat Exam: Oral Mucosa [place] & Moist, Oral Pharynx Normal Neck Neck Exam: Neck Supple, Trachea Midline Pulmonary Resp Exam: Clear Bilaterally, Breath Sounds Equal Cardiology CV Exam: Regular, Normal Sinus Rhythm Gastrointestinal/Abdomen GI Exam: Soft, Bowel Sounds Present GI Remarks diffuse abdominal tenderness...better. Musculoskeletal MS Exam: Normal Tone Integumentary Skin Exam: Clear, Warm, Dry, Intact Neurologic Neuro Exam: Alert, Awake, Oriented, Speech Clear, Moving All Extremities, No Focal Deficits Psychiatric Psych Exam: Appropriate Responses VTE Prophylaxis VTE Prophylaxis Device: SCDs PUD Prophylasis PUD Prophylaxis: Protonix Assessment/Plan Assessment/Plan ASSESSMENT AND PLAN: This is a 61-year female who came to the emergency room and diagnosed with 1. Abdominal pain secondary to acute diverticulitis. The patient was on Doxycycline 100 milligrams PO BID, Flagyl 500 milligrams PO three times a day, .ID input noted..Antibiotic per ID Recommendation... GI input noted..need colonoscopy 6-8 weeks....the patient is on morphine 2 milligrams IV q. 4 hours PRN pain...Diverticulitis Improving 2. History of migraine headaches. Continue home medications. 3. History of anxiety. 4. 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 5. History of hyperlipidemia. The patient is not taking any cholesterol medicine. 6. DVT prophylaxis with SCDs. 7. GI prophylaxis with Protonix 40 milligrams p.o. daily. ok to DC per ID. and GI. ok to dc home today. fu with PCP/ GI 1 week. Discussed Condition with: Patient Israel Wheeler MD January 06, 2017 08:00
[2017-01-06 08:53] VITALS: BP 153/94; PULSE 82; RESP 18; TEMP 96; O2SAT 100
[2017-01-06] MEDS ORDERED: ACETAMIN 325 MG/BUTALBITAL 50 MG/CAFFEINE 40 MG TAB PO PRN (10:00)
[2017-01-06] MEDS: DOCUSATE SODIUM 100 MG CAP PO SCH (10:16)
[2017-01-06] MEDS: LACTOBACILLUS ACIDOPHILUS TAB PO SCH (10:16)
[2017-01-06] MEDS: PANTOPRAZOLE SOD 40 MG DELAYED RELEASE TAB PO SCH (10:16)
[2017-01-06] MEDS: DOXYCYCLINE HYCLATE 100 MG TAB PO SCH (10:16)
[2017-01-06] MEDS ORDERED: DOXY100T PO (12:18)
[2017-01-06] MEDS ORDERED: METR-1 PO (12:18)
[2017-01-06] MEDS ORDERED: LACT PO (12:18)
--- NOTE | 2017-01-06 15:50 | MD ---
cc: ISRAEL BOSS MD ADMISSION DATE: 01/02/2017 DISCHARGE DATE: 01/06/2017 Okay to discharge the patient. CONDITION AT THE TIME OF DISCHARGE Satisfactory ACTIVITY As tolerated. DIET Cardiac diet ALLERGIES CIPROFLOXACIN, ERYTHROMYCIN, PENICILLIN, SULFA, AND CLINDAMYCIN DISCHARGE MEDICATIONS Includes: 1. Doxycycline 100 mg p.o. twice a day 2. Lactobacillus one p.o. twice a day 3. Flagyl 500 mg p.o. t.i.d. 4. Fioricet one p.o. q.6 h p.r.n. headache. FOLLOW UP The patient advised to follow up with gastroenterology, infectious disease and PCP in a week. ADMISSION DIAGNOSIS Abdominal pain secondary to acute diverticulitis. DISCHARGE DIAGNOSIS Abdominal improved, acute diverticulitis improved. The patient seen by GI and Infectious disease doctor. The patient needs colonoscopy in 6-8 weeks per GI. The patient was given clindamycin and developed a rash in the hospital and the patient also given IV Invanz which also caused rash so Invanz and Clindamycin were discontinued. The patient was eventually started on doxycycline oral, as well as Flagyl oral and the patient remained stable. The patient's diverticulitis improved. The patient remained stable. The patient has a history of anxiety, migraine headaches, squamous cell carcinoma removed from the chest and hyperlipidemia. The patient remained stable. No acute event happened. Discharged in a satisfactory condition. The patient had leukocytosis which resolved during the hospital stay. The patient's CT of the abdomen and pelvis was done shows moderate to severe acute uncomplicated diverticulitis of the sigmoid colon. There is considerable wall thickening presumed inflammatory, but colonoscopy is recommended after resolution of the acute process if not done recently. No acute abnormalities were demonstrated, small hiatal hernia noted. Israel Boss MD EA/NIKOLAI /12:25 PM /3:49 PM
== END 2017-01-06 13:18 | disposition home or self-care (01) | DRG 392 ==
LOC: PHED 22:34 → PHEDA 01-02 01:40 → PH3A 01-02 02:34
PROVIDERS: ADMIT Family Medicine; ATTEND Family Medicine
DX: K57.32 Diverticulitis of large intestine without perforation or abscess without bleeding (principal); I10 Essential (primary) hypertension; K62.5 Hemorrhage of anus and rectum; E78.5 Hyperlipidemia, unspecified; D72.829 Elevated white blood cell count, unspecified; K44.9 Diaphragmatic hernia without obstruction or gangrene; G43.909 Migraine, unspecified, not intractable, without status migrainosus; Z85.828 Personal history of other malignant neoplasm of skin; F41.9 Anxiety disorder, unspecified; Z90.710 Acquired absence of both cervix and uterus; K59.09 Other constipation
CPT/HCPCS: 74177; 80053; 81001; 82948; 83690; 85007; 85025; 85027; 96361; 96374; 96375; J0360; J1335; J1885; J2270; J2405; J7030; Q9967